=== PATIENT | male | born 1975 | race Caucasian/White ===

== ENCOUNTER 2017-10-21 13:21 | Emergency (ER) | payer SELFPAY ==
[~2017-10-21] VITALS: Ht 180.3 cm; Wt 70.3 kg
[~2017-10-21 13:21] MED LIST: VEN75XRT
[2017-10-21 14:57] VITALS: BP 139/80
[2017-10-21] MEDS ORDERED: METHOCARBAMOL 500 MG TAB PO ONE (15:30)
[2017-10-21] MEDS ORDERED: KETOROLAC TROMETH 60MG/2ML VIAL IM ONE (15:30)
== END 2017-10-21 16:18 | disposition home or self-care (01) ==
LOC: ER 13:21
DX: S40.012A Contusion of left shoulder, initial encounter (principal); Z88.0 Allergy status to penicillin; W19.XXXA Unspecified fall, initial encounter; Y93.89 Activity, other specified; Y99.8 Other external cause status; Y92.89 Other specified places as the place of occurrence of the external cause
CPT/HCPCS: 73030; 96372; 99284; J1885

== ENCOUNTER 2017-10-24 14:45 | Emergency (ER) | payer SELFPAY ==
[~2017-10-24] VITALS: Ht 180.3 cm; Wt 70.3 kg
[2017-10-24 15:40] VITALS: BP 122/90
== END 2017-10-24 16:06 | disposition home or self-care (01) ==
LOC: ER 14:45
DX: S46.002A Unspecified injury of muscle(s) and tendon(s) of the rotator cuff of left shoulder, initial encounter (principal); F17.210 Nicotine dependence, cigarettes, uncomplicated; Z88.0 Allergy status to penicillin; W19.XXXA Unspecified fall, initial encounter; Y93.89 Activity, other specified; Y99.8 Other external cause status; Y92.89 Other specified places as the place of occurrence of the external cause